=== PATIENT | male | born 1985 | race Caucasian/White ===

== ENCOUNTER 2020-01-16 08:03 | Emergency (ER) | payer OTHER, SELFPAY ==
[2020-01-16 08:12] VITALS: BP 145/99; PULSE 92; RESP 16; TEMP 36.2; O2SAT 97
--- NOTE | 2020-01-16 08:13 | ED.URI ---
HPI - URI/Sore Throat General Chief Complaint: Upper Respiratory Infection Stated Complaint: Sore Throat body aches Time Seen by Provider: 01/16/20 08:13 Source: patient and RN notes reviewed History of Present Illness HPI Narrative: Patient is a 34-year-old male that presents the urgent care with complaints of chills, body aches, sore throat. Patient states his symptoms started on Thursday and he was sent from work from his boss. Patient has been using DayQuil, NyQuil, cough drops. Denies any known fever or exposure to strep. No other acute complaints. No acute distress noted. Patient read the plan of care. Related Data Home Medications Medication Instructions Recorded Confirmed alprazolam 0.25 mg PO DAILY 01/16/20 01/16/20 escitalopram oxalate 10 mg PO DAILY 01/16/20 01/16/20 Allergies Allergy/AdvReac Type Severity Reaction Status Date / Time No Known Allergies Allergy Verified 01/16/20 08:17 Review of Systems Review of Systems: Narrative: CONSTITUTIONAL: Reports of chills without known fever EYES: Denies visual changes, redness, or discharge. ENT: Reports of sore throat CARDIOVASCULAR: Denies chest pain, palpitations, or edema. RESPIRATORY: Denies cough or dyspnea. GASTROINTESTINAL: Denies abdominal pain, nausea, vomiting, or diarrhea. GENITOURINARY: Denies dysuria or hematuria. SKIN: Denies rash or itching. MUSCULOSKELETAL: Denies back pain, joint pain; reports of body aches NEUROLOGIC: Denies headache, numbness, or weakness. All other systems reviewed are negative, except as documented in HPI. PMFSH Comments At the time of my signature, I reviewed and agree with the nursing past medical, surgical, social, and family history. There is no relevant family history pertinent to the patient complaint. Exam Narrative: Exam Narrative: GENERAL: This is a well-nourished, well-developed patient, in no apparent distress. HEAD: normocephalic, atraumatic. EYES: PERRL. Sclera clear/white. Vision is grossly intact. EARS: External ears normal, auditory canals clear and without drainage, TMs normal without perforation. Hearing grossly intact. NOSE: External nose normal with no obvious nasal discharge, nares without redness, no rhinorrhea. THROAT: Mucous membranes moist, moderate erythema noted posterior oropharynx with mild to moderate bilateral tonsillar edema and bilateral moderate exudate. NECK: Neck supple, non-tender mild submandibular lymphadenopathy CARDIOVASCULAR: Regular rate and rhythm without murmurs, gallops, or rubs. RESPIRATORY: Clear to auscultation. Breath sounds equal bilaterally. No wheezes, rales, or rhonchi. SKIN: warm, intact with no suspicious lesions or rash, good texture and turgor. NEURO: awake, alert, and oriented to person, place and time. There were no obvious focal neurologic abnormalities. EXTREMITIES: No clubbing, cyanosis, or edema. Course Vital Signs Vital signs: Vital Signs Temperature 97.2 F L 01/16/20 08:12 Pulse Rate 92 01/16/20 08:12 Respiratory Rate 16 01/16/20 08:12 Blood Pressure 145/99 H 01/16/20 08:12 Pulse Oximetry 97 01/16/20 08:12 Temperature 97.2 F L 01/16/20 08:12 Pulse Rate 92 01/16/20 08:12 Respiratory Rate 16 01/16/20 08:12 Blood Pressure 145/99 H 01/16/20 08:12 Pulse Oximetry 97 01/16/20 08:12 Reviewed?patient is informed that they may have pre-hypertension or hypertension based on a blood pressure reading in the department. I recommend the patient call the primary care provider listed on their discharge instructions or a physician of their choice this week to arrange follow-up for further evaluation of possible pre-hypertension or hypertension. MDM - URI/Sore Throat MDM Narrative Medical decision making narrative: Reviewed lab results with the patient. He is aware that her strep swab was negative. However, due to assessment patient will be treated for tonsillitis and should complete antibiotic regimen as prescribed. Make sure to use T
== END 2020-01-16 08:40 | disposition home or self-care (01) ==
PROVIDERS: Emergency Provider Nurse Practitioner Family; PCP Family Medicine
DX: J03.90 Acute tonsillitis, unspecified (principal)
CPT/HCPCS: 87081; 87880; 99213; G0463

== ENCOUNTER 2020-01-30 11:28 | Emergency (ER) | payer OTHER, SELFPAY ==
[2020-01-30 11:33] VITALS: BP 144/93; PULSE 73; RESP 16; TEMP 36.6; O2SAT 100
--- NOTE | 2020-01-30 11:36 | ED.URI ---
HPI - URI/Sore Throat General Chief Complaint: Nausea/Vomiting/Diarrhea Stated Complaint: nausea aches cough Time Seen by Provider: 01/30/20 11:36 Source: patient and RN notes reviewed History of Present Illness HPI Narrative: Patient is a 34-year-old male that presents the urgent care with complaints of slight dry cough, little bit of body aches, slight headache, loose stools. Patient states that it started yesterday and he needs a work note due to not going to work today. Patient states that he did eat some corn beef and cabbage at a local restaurant and thinks he may have gotten some food poisoning. Denies any fever, abdominal pain, urinary symptoms. No other acute complaints. No acute distress noted. Patient read the plan of care. Related Data Home Medications Medication Instructions Recorded Confirmed alprazolam 0.25 mg PO DAILY 01/16/20 01/30/20 escitalopram oxalate 10 mg PO DAILY 01/16/20 01/30/20 Allergies Allergy/AdvReac Type Severity Reaction Status Date / Time No Known Allergies Allergy Verified 01/30/20 11:37 Review of Systems Review of Systems: Narrative: CONSTITUTIONAL: Denies fever, chills, or sweats. EYES: Denies visual changes, redness, or discharge. ENT: Denies rhinorrhea, congestion, sore throat, or otalgia. CARDIOVASCULAR: Denies chest pain, palpitations, or edema. RESPIRATORY: Reports of slight dry cough GASTROINTESTINAL: Reports of loose stools and nausea without abdominal pain GENITOURINARY: Denies dysuria or hematuria. SKIN: Denies rash or itching. MUSCULOSKELETAL: Denies back pain, joint pain; reports of body aches NEUROLOGIC: Reports of intermittent headaches All other systems reviewed are negative, except as documented in HPI. PMFSH Comments At the time of my signature, I reviewed and agree with the nursing past medical, surgical, social, and family history. There is no relevant family history pertinent to the patient complaint. Exam Narrative: Exam Narrative: GENERAL: This is a well-nourished, well-developed patient, in no apparent distress. HEAD: normocephalic, atraumatic. EYES: PERRL. Sclera clear/white. Vision is grossly intact. EARS: External ears normal, auditory canals clear and without drainage, TMs normal without perforation. Hearing grossly intact. NOSE: External nose normal with no obvious nasal discharge, nares without redness, no rhinorrhea. THROAT: Mucous membranes moist, posterior pharynx clear. Mild postnasal drainage NECK: Neck supple CARDIOVASCULAR: Regular rate and rhythm without murmurs, gallops, or rubs. GASTRO: Abdomen soft, nontender, nondistended, hypoactive bowel sounds RESPIRATORY: Clear to auscultation. Breath sounds equal bilaterally. No wheezes, rales, or rhonchi. SKIN: warm, intact with no suspicious lesions or rash, good texture and turgor. NEURO: awake, alert, and oriented to person, place and time. There were no obvious focal neurologic abnormalities. EXTREMITIES: No clubbing, cyanosis, or edema. Course Vital Signs Vital signs: Vital Signs Temperature 97.9 F 01/30/20 11:33 Pulse Rate 73 01/30/20 11:33 Respiratory Rate 16 01/30/20 11:33 Blood Pressure 144/93 H 01/30/20 11:33 Pulse Oximetry 100 01/30/20 11:33 Temperature 97.9 F 01/30/20 11:33 Pulse Rate 73 01/30/20 11:33 Respiratory Rate 16 01/30/20 11:33 Blood Pressure 144/93 H 01/30/20 11:33 Pulse Oximetry 100 01/30/20 11:33 Reviewed-patient is informed that they may have pre-hypertension or hypertension based on a blood pressure reading in the department. I recommend the patient call the primary care provider listed on their discharge instructions or a physician of their choice this week to arrange follow-up for further evaluation of possible pre-hypertension or hypertension. MDM - URI/Sore Throat MDM Narrative Medical decision making narrative: Advised the patient to use Zofran as needed for nausea. Do not take Zofran with anxiety medication. Increase water i
== END 2020-01-30 12:05 | disposition home or self-care (01) ==
PROVIDERS: Emergency Provider Nurse Practitioner Family; PCP Family Medicine
DX: R11.2 Nausea with vomiting, unspecified (principal); R19.7 Diarrhea, unspecified; I10 Essential (primary) hypertension; F41.9 Anxiety disorder, unspecified
CPT/HCPCS: 99213; G0463

== ENCOUNTER 2024-09-23 15:46 | Emergency (ER) | payer BC, SELFPAY ==
[2024-09-23 16:01] VITALS: BP 136/86; PULSE 82; RESP 16; TEMP 36.4; O2SAT 98
--- NOTE | 2024-09-23 16:09 | ED.EAR ---
HPI - Ear Problem General Chief complaint: Ear Stated complaint: left ear bothersome Time Seen by Provider: 09/23/24 16:10 Source: patient, RN notes reviewed and old records reviewed Mode of arrival: ambulatory Limitations: no limitations History of Present Illness HPI Narrative: 39-year-old male to [facility] Care with complaint of left ear fullness, itching, pressure and decreased hearing since yesterday. Patient has not attempted to treat symptoms at home. Patient denies allergies or pertinent medical history. Patient able to tolerate fluids by mouth. Patient resting comfortably in exam room in no acute distress. Related Data Allergies Allergy/AdvReac Type Severity Reaction Status Date / Time No Known Allergies Allergy Verified 09/23/24 15:58 Review of Systems Review of Systems: All systems reviewed & are unremarkable except as noted in HPI and below Constitutional: Constitutional: Reports no additional constitutional complaints Eyes: Eyes: Reports no additional eye complaints ENT: Reports as per HPI and Reports otalgia Cardiovascular: Cardiovascular: Reports no additional cardiovascular complaints, Denies chest pain and Denies dyspnea Respiratory: Respiratory: Reports no additional respiratory complaints, Denies cough and Denies dyspnea Musculoskeletal: Musculoskeletal: Reports no additional musculoskeletal complaints Neurologic: Reports system reviewed and no additional complaints, except as documented Psychiatric: Psychiatric: Reports no additional psychiatric complaints PMFSH Comments At the time of my signature, I reviewed and agree with the nursing past medical, surgical, social, and family history. There is no relevant family history pertinent to the patient complaint. Exam Const: General: cooperative, healthy appearing, comfortable, no acute distress, alert and well nourished Nutritional Appearance: well nourished Orientation/consciousness: patient oriented x3 Limitations: no limitations HENMT: Head: normal to inspection Ears: external ears normal and TM abnormal bulging on the left, with fluid behind the TM on the left and with loss of landmarks on the left Face/Nose/Sinus: Normal external nose present, Normal nares present, normal facial exam, No erythema and No edema Face and sinus: normal facial exam, no erythema and no edema Mouth: Yes Normal oral and palatal mucosa present Eyes: General: appearance normal, both eyes and all related structures Neck: Neck: normal visual inspection, full ROM and no meningeal signs Lymphatic: no lymphadenopathy noted and no lymphedema noted Chest: Chest palpation & inspection: normal inspection of the chest Resp: Effort & Inspection: normal respiratory effort and able to speak in complete sentences Auscultation: clear to auscultation bilaterally Cardio: Jugular venous distension: no JVD Rate: regular rate Rhythm: regular rhythm Back/Spine/Pelvis: Cervical Spine: cervical ROM normal Skin: General skin exam: normal color, no rashes or lesions noted and turgor normal Neuro: General: patient oriented x3, gait normal, moves all extremities and no meningeal signs Speech: normal speech Gait exam (Neuro): Normal gait present Extrem: General: normal to inspection, full ROM and capillary refill normal Psych: Appearance: grossly normal and well kempt Course Course Emergency Course: Some parts of this dictation were generated by voice recognition software and may contain typographical and/or grammatical inaccuracies. Level of Care: Express Care Visit Vital Signs Vital signs: Vital Signs Temperature 36.4 C 09/23/24 16:01 Pulse Rate 82 09/23/24 16:01 Respiratory Rate 16 09/23/24 16:01 Blood Pressure 136/86 09/23/24 16:01 Pulse Oximetry 98 09/23/24 16:01 Oxygen Delivery Room Air 09/23/24 16:01 Temperature 36.4 C 09/23/24 16:01 Pulse Rate 82 09/23/24 16:01 Respiratory Rate 16 09/23/24 16:01 Blood Pressure 136/86 09/23/24 16:01 Pulse Oximetry 98 09/23/24 16:01 Oxygen Delivery Room Air 09/23/24 16:01 reviewed Medical Decision Making MDM Narrative Medical decision making narrative: 39-year-old male to [facility] with complaint of right ear fullness, itching, pressure and decreased hearing since yesterday. Patient has not attempted to treat symptoms at home. Patient denies allergies or pertinent medical history. Patient able to tolerate fluids by mouth. Patient resting comfortably in exam room in no acute distress. Patient is sitting comfortably in exam room nontoxic in appearance. On exam, left TM erythematous, bulging with fluid. Consistent with left otitis media Patient appropriate for outpatient treatment and follow-up. Discharge instructions reviewed with patient, as well as provided in writing per nursing staff. The instructions also include specific and strict return/GO TO THE ER as well as f/u information. All questions have been answered, and the patient deny any further questions with discharge and discharge plan. Some parts of this dictation were generated by voice recognition software and may contain typographical and/or grammatical inaccuracies. Differential Diagnosis Differential Diagnosis: otitis media, otitis externa, ruptured tympanic membrane, sinusitis Vital Signs Vital Signs: Vital Signs Temperature 36.4 C 09/23/24 16:01 Pulse Rate 82 09/23/24 16:01 Respiratory Rate 16 09/23/24 16:01 Blood Pressure 136/86 09/23/24 16:01 Pulse Oximetry 98 09/23/24 16:01 Oxygen Delivery Room Air 09/23/24 16:01 Temperature 36.4 C 09/23/24 16:01 Pulse Rate 82 09/23/24 16:01 Respiratory Rate 16 09/23/24 16:01 Blood Pressure 136/86 09/23/24 16:01 Pulse Oximetry 98 09/23/24 16:01 Oxygen Delivery Room Air 09/23/24 16:01 Discharge Plan Discharge Clinical Impression: Acute left otitis media Patient Disposition: Home, Self-Care Condition: Stable Instructions: Ear Infection (AC) Additional Instructions: alternate and ibuprofen as needed for pain please finish entire course of antibiotic treatment for new or worsening symptoms go directly to the emergency department Prescriptions: New amoxicillin 875 mg tablet 875 mg PO Q12H Qty: 20 0RF methylprednisolone [Medrol (Zach)] 4 mg tablets,dose pack See Rx Instructions .ROUTE .COMPLEX Qty: 21 0RF Rx Instructions: per package instructions Follow-up/Referrals: Kate,Michael Sahu MD [Primary Care Provider] -
== END 2024-09-23 16:19 | disposition home or self-care (01) ==
PROVIDERS: Emergency Provider Nurse Practitioner Family; PCP Family Medicine
DX: H66.92 Otitis media, unspecified, left ear (principal); I10 Essential (primary) hypertension
CPT/HCPCS: 99213; G0463